=== PATIENT | female | born 1955 | race Caucasian/White ===

== ENCOUNTER 2018-06-20 10:03 | Day surgery (SDC) | payer MEDICARE, OTHER ==
[~2018-06-20] VITALS: Ht 160 cm; Wt 80.6 kg
[2018-06-20] VITALS (10 sets, daily range): BP systolic 127–141; BP diastolic 68–83
[2018-06-20] MEDS ORDERED: diphenhydrAMINE 25mg capsule PO PRN (10:55)
[2018-06-20] MEDS ORDERED: LORazepam 0.5 MG tablet PO PRN (10:55)
[2018-06-20] MEDS ORDERED: normal saline 1000ml 1,000 ML IV SCH (10:55)
[2018-06-20] MEDS ORDERED: BUDE10.2 INH (11:06)
[2018-06-20] MEDS ORDERED: DABI150C PO (11:06)
[2018-06-20] MEDS ORDERED: PREG150C PO (11:06)
[2018-06-20] MEDS ORDERED: ALBU8.5H8 INH (11:06)
[2018-06-20] MEDS ORDERED: OMEP40CA37 PO (11:06)
[2018-06-20] MEDS ORDERED: CALC300T4 PO (11:06)
[2018-06-20] MEDS ORDERED: TEMA15CA PO (11:06)
[2018-06-20] MEDS ORDERED: VERA180T PO (11:06)
[2018-06-20] MEDS ORDERED: DULO60CA45 PO (11:06)
[2018-06-20] MEDS ORDERED: ROSU20TA PO (11:06)
[2018-06-20] MEDS ORDERED: TIOT18CA3 (11:06)
[2018-06-20] MEDS ORDERED: iohexol 350MG/ML 100ml bottle IV ONE (11:59)
[2018-06-20] MEDS ORDERED: midazolam 2 mg/2 ml injection ONE (11:59)
[2018-06-20] MEDS ORDERED: LIDOcaine 1% 30ml preserv. free vial ONE (11:59)
[2018-06-20] MEDS ORDERED: fentaNYL/PF 50MCG/1 ML 2ML syringe ONE (11:59)
[2018-06-20] MEDS ORDERED: HYDROcodone/acetaminophen 5mg/325mg tablet PO PRN (13:35)
[2018-06-20] MEDS ORDERED: proCHLORperazine 10 MG/2 ml inj IV PRN (13:35)
[2018-06-20] MEDS ORDERED: nitroGLYCERIN 0.4mg SUBLingual tab SL PRN (13:35)
[2018-06-20] MEDS ORDERED: ondansetron/PF 4mg/2ml inj IV PRN (13:35)
[2018-06-20] MEDS ORDERED: OXAZEpam 15mg capsule PO PRN (13:35)
[2018-06-20] MEDS ORDERED: HYDROcodone/acetaminophen 10/325mg tab PO PRN (13:35)
[2018-06-20] MEDS ORDERED: acetaminophen 325mg tablet PO PRN (15:50)
== END 2018-06-20 18:20 | disposition home or self-care (01) ==
LOC: SSTAY O 10:03
PROVIDERS: ATTEND Internal Medicine Interventional Cardiology
DX: I27.20 Pulmonary hypertension, unspecified (principal); I10 Essential (primary) hypertension; E78.5 Hyperlipidemia, unspecified; I48.0 Paroxysmal atrial fibrillation; J44.9 Chronic obstructive pulmonary disease, unspecified; M79.7 Fibromyalgia; G47.33 Obstructive sleep apnea (adult) (pediatric); F32.9 Major depressive disorder, single episode, unspecified; M81.0 Age-related osteoporosis without current pathological fracture; K21.9 Gastro-esophageal reflux disease without esophagitis; M19.90 Unspecified osteoarthritis, unspecified site; F41.8 Other specified anxiety disorders; Z87.891 Personal history of nicotine dependence; Z99.81 Dependence on supplemental oxygen; Z90.721 Acquired absence of ovaries, unilateral; Z88.8 Allergy status to other drugs, medicaments and biological substances; Z79.899 Other long term (current) drug therapy; Z98.890 Other specified postprocedural states; Z82.49 Family history of ischemic heart disease and other diseases of the circulatory system; Z83.6 Family history of other diseases of the respiratory system
CPT/HCPCS: 93460; 99152; A6257; C1769; J1644; J2250; J3010; J3490; J7030; Q0163; Q9967; 93005; A4620

== ENCOUNTER 2019-09-05 12:36 | Outpatient (CLI) | payer MEDICARE, BC ==
[~2019-09-05] VITALS: Ht 162.6 cm; Wt 79.4 kg
[~2019-09-05 12:36] MED LIST: ALBU8.5H8 INH; BUDE10.2 INH; CALC300T4 PO; DABI150C PO; DULO60CA45 PO; OMEP40CA13 PO; PREG150C PO; ROSU20TA2 PO; TEMA15CA PO; TIOT18CA3; VERA180T PO
[2019-09-05] MEDS ORDERED: albuterol 2.5 MG/3 ML nebule NEB ONE (13:35)
== END 2019-09-05 23:59 | disposition home or self-care (01) ==
LOC: RT 12:36
PROVIDERS: ATTEND Internal Medicine
DX: J44.9 Chronic obstructive pulmonary disease, unspecified (principal); I27.20 Pulmonary hypertension, unspecified; Z87.891 Personal history of nicotine dependence
CPT/HCPCS: 94060; 94618; 94727; 94729; 94760

== ENCOUNTER 2021-02-05 13:05 | Outpatient (CLI) | payer MEDICARE | END 2021-02-05 23:59 | disposition home or self-care (01) | LOC: CARD DIAG 13:05 | PROVIDERS: ATTEND Internal Medicine | DX: I08.0 Rheumatic disorders of both mitral and aortic valves (principal) | CPT/HCPCS: 93306 ==

== ENCOUNTER 2021-04-23 14:00 | Outpatient (CLI) | payer MEDICARE ==
[~2021-04-23 14:00] MED LIST changes: -OMEP40CA13 PO; +OMEP40CA21 PO
== END 2021-04-23 23:59 | disposition home or self-care (01) ==
LOC: 64 CT 14:00
PROVIDERS: ATTEND Internal Medicine
DX: J43.9 Emphysema, unspecified (principal); M47.814 Spondylosis without myelopathy or radiculopathy, thoracic region; J98.11 Atelectasis
CPT/HCPCS: 71250

== ENCOUNTER 2021-11-09 12:36 | Outpatient (CLI) | payer MEDICARE ==
[~2021-11-09 12:36] MED LIST changes: +ALBU8.5H17 INH; -ALBU8.5H8 INH; -DULO60CA45 PO; +DULO60CA59 PO
== END 2021-11-09 23:59 | disposition home or self-care (01) ==
LOC: CARD DIAG 12:36
PROVIDERS: ATTEND Internal Medicine
DX: I05.8 Other rheumatic mitral valve diseases (principal); I27.20 Pulmonary hypertension, unspecified
CPT/HCPCS: 93306

== ENCOUNTER 2022-03-08 13:38 | Day surgery (SDC) | payer MEDICARE ==
[~2022-03-08] VITALS: Ht 162.6 cm; Wt 85.3 kg
[2022-03-08] VITALS (7 sets, daily range): BP systolic 127–145; BP diastolic 53–77
[2022-03-08 14:30] LABS: BASOPHILS # (AUTO) 0.1 X10'3 (0-0.2); BASOPHILS % (AUTO) 1.1 % (0-1); EOSINOPHILS # (AUTO) 0.1 X10'3 (0-0.9); EOSINOPHILS % (AUTO) 1.6 % (0-6); HEMATOCRIT 35.8 % (35.0-45.0); HEMOGLOBIN 11.6 g/dl (12.0-16.0); LYMPHOCYTES # (AUTO) 1.3 X10'3 (1.1-4.8); LYMPHOCYTES % (AUTO) 14.6 % (21-51); MEAN CORPUSCULAR HEMOGLOBIN 25.7 PG (27.0-31.0); MEAN CORPUSCULAR HGB CONC 32.3 g/dL (33.0-36.5); MEAN CORPUSCULAR VOLUME 79.5 FL (78-98); MEAN PLATELET VOLUME 9.2 FL (7.4-10.4); MONOCYTES # (AUTO) 0.9 X10'3 (0-0.9); MONOCYTES % (AUTO) 9.6 % (2-12); NEUTROPHILS # (AUTO) 6.6 X10'3 (1.8-7.7); NEUTROPHILS % (AUTO) 73.1 % (42-75); PLATELET COUNT 282 X10'3 (140-440); RED CELL DISTRIBUTION WIDTH 15.8 % (11.5-14.5)
[2022-03-08 14:31] LABS: ALBUMIN 3.4 G/DL (3.4-5.0); ANION GAP 8 (8-16); BLOOD UREA NITROGEN 9 MG/DL (7-18); BUN/CREATININE RATIO 12.9 (6.6-38.0); CALCIUM 8.8 MG/DL (8.5-10.1); CHLORIDE 104 MMOL/L (99-107); GLUCOSE 124 MG/DL (70-104); POTASSIUM 4.2 MMOL/L (3.5-5.1); SODIUM 139 MMOL/L (135-145); TOTAL CARBON DIOXIDE 27.3 MMOL/L (24-32); eGFR 83 ML/MIN
[2022-03-08] MEDS ORDERED: normal saline 1,000 ML IV SCH (14:34)
[2022-03-08 14:35] LABS: APTT 29 SECONDS (22-32)
[2022-03-08] MEDS ORDERED: diphenhydrAMINE 25mg capsule PO PRN (14:35)
[2022-03-08] MEDS ORDERED: LORazepam 0.5 MG tablet PO PRN (14:35)
[2022-03-08] MEDS ORDERED: FORM20VI4 NEB (15:07)
[2022-03-08] MEDS ORDERED: FURO80TA3 PO (15:07)
[2022-03-08] MEDS ORDERED: POTA-188 PO (15:07)
[2022-03-08] MEDS ORDERED: REVE175V INH (15:07)
[2022-03-08] MEDS ORDERED: VERA360C2 PO (15:07)
[2022-03-08] MEDS ORDERED: CETI-90 PO (15:07)
[2022-03-08] MEDS ORDERED: MAGN400C PO (15:07)
[2022-03-08] MEDS ORDERED: heparin 1,000unit/ml 10ml vial 0 ML ONE (16:17)
[2022-03-08] MEDS ORDERED: verapamil 2.5 mg/ml inj IV ONE (16:17)
[2022-03-08] MEDS ORDERED: nitroGLYCERIN-Tridil 50MG/D5W 0 ML IV ONE (16:17)
[2022-03-08] MEDS ORDERED: heparin 1,000 UNITS/NS 500ml 500 ML ONE (16:18)
[2022-03-08] MEDS ORDERED: LIDOcaine 1% 30ml preserv. free vial ONE (16:20)
[2022-03-08] MEDS ORDERED: midazolam 1 mg/ML 2ml injection ONE (16:52)
[2022-03-08] MEDS ORDERED: fentaNYL/PF 50MCG/1 ML 2ML syringe ONE (16:53)
[2022-03-08] MEDS ORDERED: HYDROcodone/acetaminophen 10/325mg tab PO PRN (18:10)
[2022-03-08] MEDS ORDERED: HYDROcodone/acetaminophen 5mg/325mg tablet PO PRN (18:10)
[2022-03-09 06:15] LABS: ISTAT Hct MIX 33 %PCV (35-48); ISTAT O2 SATURATION MIX VENOUS 56 % (60-80); ISTAT SOURCE BLNK
== END 2022-03-08 19:30 | disposition home or self-care (01) ==
LOC: SSTAY O 13:38
PROVIDERS: ATTEND Internal Medicine Interventional Cardiology
DX: I27.20 Pulmonary hypertension, unspecified (principal); J44.9 Chronic obstructive pulmonary disease, unspecified; G47.33 Obstructive sleep apnea (adult) (pediatric); I11.9 Hypertensive heart disease without heart failure; F32.9 Major depressive disorder, single episode, unspecified; I48.0 Paroxysmal atrial fibrillation; M81.0 Age-related osteoporosis without current pathological fracture; E78.5 Hyperlipidemia, unspecified; Z79.01 Long term (current) use of anticoagulants; Z88.8 Allergy status to other drugs, medicaments and biological substances; Z79.899 Other long term (current) drug therapy
CPT/HCPCS: 36415; 80048; 82803; 85014; 85025; 85610; 85730; 93005; 93451; 99152; C1751; C1769; J1644; J2250; J3010; J3490; J7030; Q0163; A4620; A5120

== ENCOUNTER 2024-11-14 10:45 | Outpatient (CLI) | payer MEDICARE ==
[~2024-11-14 10:45] MED LIST changes: +CETI-90 PO; +FORM20VI4 NEB; +FURO80TA3 PO; +MAGN400C PO; +POTA-188 PO; +REVE175V INH; -VERA180T PO; +VERA360C2 PO
== END 2024-11-14 23:59 | disposition home or self-care (01) ==
LOC: CARD DIAG 10:45
PROVIDERS: ATTEND Internal Medicine
DX: I35.9 Nonrheumatic aortic valve disorder, unspecified (principal); I27.20 Pulmonary hypertension, unspecified
CPT/HCPCS: 93306